=== PATIENT | female | born 1960 | race Caucasian/White ===

== ENCOUNTER → 2017-07-22 | Outpatient (REF) | payer OTHER ==
[2017-07-24 14:14] LABS: HPV HYBRID CAPTURE II Negative (Negative)
== END ==
LOC: M SFHCWAGY 15:42
DX: Z12.4 Encounter for screening for malignant neoplasm of cervix (principal); Z12.31 Encounter for screening mammogram for malignant neoplasm of breast

== ENCOUNTER → 2017-07-25 | Outpatient (REF) | payer OTHER ==
[2017-07-25 19:06] LABS: BASO % 0.5 % (0.0-1.0); EOS # 0.1 10^3/uL (0.0-0.50); EOS % 2.2 % (0.0-3.0); HEMOGLOBIN 11.8 g/dl (12.0-16.0); IMMATURE GRANULOCYTE % 0.3 % (0-0); LYMPH # 1.6 10^3/uL (1.5-4.5); LYMPH % 26.8 % (24.0-44.0); MEAN CORPUSCULAR HEMOGLOBIN 29.6 pg (27.0-33.0); MEAN CORPUSCULAR HGB CONC 31.9 g/dl (32.0-36.5); MEAN CORPUSCULAR VOLUME 92.7 fl (80.0-96.0); MONO # 0.5 10^3/uL (0.0-0.8); MONO % 8.5 % (0.0-5.0); NEUTROPHILS # 3.7 10^3/uL (1.8-7.7); NEUTROPHILS % 61.7 % (36.0-66.0); PLATELET COUNT, AUTOMATED 198 10^3/uL (150-450); RED BLOOD COUNT 3.99 10^6/uL (4.00-5.40); RED CELL DISTRIBUTION WIDTH 13.3 % (11.5-14.5)
[2017-07-25 20:02] LABS: CHOLESTEROL LEVEL 122 MG/DL (<200); CHOLESTEROL RISK RATIO 1.967 (<5); HDL CHOLESTEROL 62 MG/DL (>40); LDL CHOLESTEROL 40.8 MG/DL (<100); NON-HDL-C 60 MG/DL; TRIGLYCERIDES LEVEL 96 MG/DL (<150)
[2017-07-25 20:06] LABS: TOTAL 25(OH) VITAMIN D 43.7 NG/ML (30.0-100.0)
[2017-07-25 20:28] LABS: MALB URINE SIEMENS 12.7 MG/L; MAU/CREAT RATIO 9.4 MCG/MG (0.0-30.0)
== END ==
LOC: M SFHCPLAZ 15:38
DX: R53.83 Other fatigue (principal); E78.2 Mixed hyperlipidemia; E11.40 Type 2 diabetes mellitus with diabetic neuropathy, unspecified; E55.9 Vitamin D deficiency, unspecified

== ENCOUNTER → 2017-10-23 | Outpatient (CLI) | payer BC | LOC: M WHC 14:57 | DX: Z12.31 Encounter for screening mammogram for malignant neoplasm of breast (principal) | CPT/HCPCS: 77067 ==

== ENCOUNTER → 2018-03-03 | Outpatient (REF) | payer OTHER ==
[2018-03-03 13:47] LABS: VITAMIN B12 LEVEL 326 PG/ML (247-911)
[2018-03-03 13:47] LABS: TOTAL 25(OH) VITAMIN D 39.8 NG/ML (30.0-100.0)
[2018-03-03 22:43] LABS: MALB URINE SIEMENS 12.1 MG/L
[2018-03-03 23:40] LABS: ALBUMIN 3.7 GM/DL (3.2-5.2); ALKALINE PHOSPHATASE 57 U/L (45-117); ALT/SGPT 41 U/L (12-78); ANION GAP 8 MEQ/L (8-16); AST/SGOT 24 U/L (7-37); BILIRUBIN,TOTAL 0.7 MG/DL (0.2-1.0); BLOOD UREA NITROGEN 16 MG/DL (7-18); CALCIUM LEVEL 8.7 MG/DL (8.8-10.2); CARBON DIOXIDE LEVEL 26 MEQ/L (21-32); CHLORIDE LEVEL 109 MEQ/L (98-107); CREATININE FOR GFR 0.96 MG/DL (0.55-1.30); GLOMERULAR FILTRATION RATE > 60.0 (>45); GLUCOSE, FASTING 86 MG/DL (70-100); POTASSIUM SERUM 4.2 MEQ/L (3.5-5.1); SODIUM LEVEL 143 MEQ/L (136-145); TOTAL PROTEIN 6.8 GM/DL (6.4-8.2)
[2018-03-03 23:43] LABS: ALBUMIN/GLOBULIN RATIO 1.19 (1.00-1.93)
[2018-03-04 00:34] LABS: MAU/CREAT RATIO 7.3 MCG/MG (0.0-30.0)
== END ==
LOC: M SFHCPLAZ 11:01
DX: E11.40 Type 2 diabetes mellitus with diabetic neuropathy, unspecified (principal)

== ENCOUNTER → 2018-09-30 | Outpatient (REF) | payer OTHER ==
[2018-10-02 14:36] LABS: HPV HYBRID CAPTURE II Negative (Negative)
== END ==
LOC: M SFHCWAGY 09:54
PROVIDERS: ATTEND Nurse Practitioner Family
DX: Z12.4 Encounter for screening for malignant neoplasm of cervix (principal)

== ENCOUNTER → 2018-10-06 | Outpatient (REF) | payer OTHER | LOC: M LAB REF 17:19 | PROVIDERS: ATTEND Physician Assistant | DX: N39.0 Urinary tract infection, site not specified (principal) ==

== ENCOUNTER → 2018-12-05 | Outpatient (REF) | payer OTHER ==
[2018-12-05 17:38] LABS: ALT/SGPT 86 U/L (12-78); BILIRUBIN,TOTAL 0.5 MG/DL (0.2-1.0); BLOOD UREA NITROGEN 18 MG/DL (7-18); CALCIUM LEVEL 9.3 MG/DL (8.8-10.2); CARBON DIOXIDE LEVEL 30 MEQ/L (21-32); CHLORIDE LEVEL 107 MEQ/L (98-107); CREATININE FOR GFR 1.02 MG/DL (0.55-1.30); GLOMERULAR FILTRATION RATE 58.8 (>45); GLUCOSE, FASTING 107 MG/DL (70-100); POTASSIUM SERUM 4.4 MEQ/L (3.5-5.1); SODIUM LEVEL 143 MEQ/L (136-145); TOTAL PROTEIN 7.2 GM/DL (6.4-8.2)
[2018-12-08 08:49] LABS: HEPATITIS B SURFACE ANTIGEN NEGATIVE (NEGATIVE)
[2018-12-08 09:16] LABS: HEPATITIS B CORE ANTIBODY IGM NEGATIVE (NEGATIVE)
[2018-12-08 09:19] LABS: HEPATITIS A ANTIBODY IGM NEGATIVE (NEGATIVE)
== END ==
LOC: M SFHCPLAZ 15:30
PROVIDERS: ATTEND Nurse Practitioner Family
DX: K76.0 Fatty (change of) liver, not elsewhere classified (principal); R94.5 Abnormal results of liver function studies

== ENCOUNTER → 2019-03-17 | Outpatient (REF) | payer OTHER ==
[2019-03-17 13:21] LABS: PERCENT SATURATION 16.5 % (13.2-45.0); THYROID STIMULATING HORMONE 1.01 uIU/ML (0.358-3.740); TOTAL 25(OH) VITAMIN D 30.2 NG/ML (30.0-100.0)
[2019-03-17 13:36] LABS: MALB URINE SIEMENS 20.4 MG/L; MAU/CREAT RATIO 15.9 MCG/MG (0.0-30.0)
== END ==
LOC: M SFHCPLAZ 10:35
PROVIDERS: ATTEND Nurse Practitioner Family
DX: E11.40 Type 2 diabetes mellitus with diabetic neuropathy, unspecified (principal)

== ENCOUNTER → 2019-03-24 | Outpatient (CLI) | payer BC, OTHER ==
--- NOTE | 2019-03-24 12:51 | REP ---
RENAL ULTRASOUND: Real-time sonographic evaluation of the kidneys performed. Right kidney measures 8.6 x 4.5 x 4.8 cm and left kidney 10.4 x 4.3 x 4.6 cm. There is no hydronephrosis bilaterally. Tiny echogenic focus in the upper pole of the right kidney could possibly represent a 4 mm calculus. Otherwise no definite calculi are seen bilaterally. Urinary bladder is empty. IMPRESSION: No hydronephrosis. Possible 4 mm calculus upper pole right kidney. Electronically Signed by Octavio Wisdom MD 03/25/2019 04:08 P
== END ==
LOC: M RAD 08:20
PROVIDERS: ATTEND Nurse Practitioner Family
DX: N18.3 Chronic kidney disease, stage 3 (moderate) (principal)

== ENCOUNTER → 2019-07-08 | Outpatient (CLI) | payer BC, OTHER ==
[2019-07-08 17:23] LABS: BILIRUBIN,TOTAL 0.7 MG/DL (0.2-1.0); CALCIUM LEVEL 9.4 MG/DL (8.8-10.2); CHOLESTEROL RISK RATIO 2.574 (<5); CREATININE FOR GFR 1.08 MG/DL (0.55-1.30); GLOMERULAR FILTRATION RATE 54.9 (>45); TOTAL PROTEIN 7.1 GM/DL (6.4-8.2)
[2019-07-08 17:30] LABS: TOTAL 25(OH) VITAMIN D 29.1 NG/ML (30.0-100.0)
[2019-07-08 17:47] LABS: HEMOGLOBIN A1c 7.2 %
[2019-07-08 17:52] LABS: MALB URINE SIEMENS 28.5 MG/L; MAU/CREAT RATIO 18.5 MCG/MG (0.0-30.0)
== END ==
LOC: M PLALAB 12:40
PROVIDERS: ATTEND Nurse Practitioner Family
DX: E11.9 Type 2 diabetes mellitus without complications (principal); E78.2 Mixed hyperlipidemia; E55.9 Vitamin D deficiency, unspecified

== ENCOUNTER → 2019-10-13 | Outpatient (REF) | payer OTHER ==
[2019-10-13 10:30] LABS: HEMOGLOBIN A1c 7.4 %
[2019-10-13 11:12] LABS: ALBUMIN 3.8 GM/DL (3.2-5.2); BILIRUBIN,TOTAL 0.8 MG/DL (0.2-1.0); CALCIUM LEVEL 9.5 MG/DL (8.8-10.2); CREATININE FOR GFR 1.12 MG/DL (0.55-1.30); GLOMERULAR FILTRATION RATE 52.7 (>45); POTASSIUM SERUM 4.6 MEQ/L (3.5-5.1); TOTAL PROTEIN 7.3 GM/DL (6.4-8.2)
[2019-10-13 11:18] LABS: TOTAL 25(OH) VITAMIN D 40.1 NG/ML (30.0-100.0)
== END ==
LOC: M PLALAB 09:36
PROVIDERS: ATTEND Nurse Practitioner Family
DX: E11.40 Type 2 diabetes mellitus with diabetic neuropathy, unspecified (principal); I10 Essential (primary) hypertension; E55.9 Vitamin D deficiency, unspecified

== ENCOUNTER → 2020-03-22 | Outpatient (CLI) | payer OTHER ==
[2020-03-22 15:06] LABS: MALB URINE SIEMENS 11.9 MG/L; MAU/CREAT RATIO 7.4 MCG/MG (0.0-30.0)
[2020-03-22 16:35] LABS: ALBUMIN 3.7 GM/DL (3.2-5.2); BILIRUBIN,TOTAL 0.7 MG/DL (0.2-1.0); BLOOD UREA NITROGEN 27 MG/DL (7-18); CALCIUM LEVEL 9.6 MG/DL (8.8-10.2); CARBON DIOXIDE LEVEL 24 MEQ/L (21-32); CHLORIDE LEVEL 110 MEQ/L (98-107); CHOLESTEROL LEVEL 142 MG/DL (<200); CHOLESTEROL RISK RATIO 2.535 (<5); CREATININE FOR GFR 0.94 MG/DL (0.55-1.30); GLOMERULAR FILTRATION RATE > 60.0 (>45); GLUCOSE, FASTING 144 MG/DL (70-100); HDL CHOLESTEROL 56 MG/DL (>40); LDL CHOLESTEROL 59 MG/DL (<100); NON-HDL-C 86 MG/DL; POTASSIUM SERUM 4.5 MEQ/L (3.5-5.1); SODIUM LEVEL 141 MEQ/L (136-145); TOTAL PROTEIN 6.9 GM/DL (6.4-8.2); TRIGLYCERIDES LEVEL 134 MG/DL (<150)
[2020-03-22 17:17] LABS: ALT/SGPT 32 U/L (12-78)
[2020-03-23 12:05] LABS: TOTAL 25(OH) VITAMIN D 28.1 NG/ML (30.0-100.0)
== END ==
LOC: M PLALAB 09:51
PROVIDERS: ATTEND Nurse Practitioner Family
DX: E55.9 Vitamin D deficiency, unspecified (principal); I10 Essential (primary) hypertension; E11.40 Type 2 diabetes mellitus with diabetic neuropathy, unspecified

== ENCOUNTER → 2020-07-01 | Outpatient (REF) | payer OTHER | LOC: M SFHCWAGY 13:21 | PROVIDERS: ATTEND Nurse Practitioner Family | DX: Z12.4 Encounter for screening for malignant neoplasm of cervix (principal) | CPT/HCPCS: 87624; G0123 ==

== ENCOUNTER → 2020-07-01 | Outpatient (CLI) | payer BC, OTHER ==
--- NOTE | 2020-07-01 11:59 | REPMRS ---
Patient History The patient states she had a clinical breast exam in 06/2020. No known family history of cancer. Benign ultrasound-guided core biopsy of the left breast, April 27, 2015. No Hormone Replacement Therapy 3D TOMOSYNTHESIS WAS PERFORMED. [facility] lifetime risk for breast cancer is 8.1%. Volpara breast density a. bilateral moles Digital Woman Screen Mammo: July 01, 2020 - Exam #: [id number] Bilateral CC and MLO view(s) were taken. Technologist: Diamond Miramontes, Technologist Prior study comparison: January 12, 2019, bilateral digital woman screen mammo performed at [facility]. October 23, 2017, digital woman screen mammo performed at [facility]. FINDINGS: There are scattered fibroglandular densities. There has been no change in the appearance of the mammogram from the prior studies. There is a mild amount of residual fibroglandular tissue which is fairly symmetric. There is no interval development of dominant mass, architectural distortion, or clustered microcalcification suggestive of malignancy. Assessment: BI-RADS/ACR category 1 mammogram. Negative Mammogram. Recommendation Routine screening mammogram in 1 year (for women over age 40). This mammogram was interpreted with the aid of an FDA-approved computer-aided dectection system. Electronically Signed By: Octavio Wisdom MD 07/01/20 [id number]
== END ==
LOC: M WHC 09:36
PROVIDERS: ATTEND Nurse Practitioner Family
DX: Z12.31 Encounter for screening mammogram for malignant neoplasm of breast (principal)

== ENCOUNTER → 2020-08-29 | Outpatient (REF) | payer OTHER | LOC: M LAB REF 09:33 | PROVIDERS: ATTEND Podiatrist | DX: M79.671 Pain in right foot (principal) ==

== ENCOUNTER → 2020-09-12 | Outpatient (REF) | payer OTHER ==
[2020-09-12 15:59] LABS: HEMOGLOBIN A1c 6.9 %
[2020-09-12 16:05] LABS: ALBUMIN 3.7 GM/DL (3.2-5.2); BILIRUBIN,TOTAL 0.5 MG/DL (0.2-1.0); CALCIUM LEVEL 9.5 MG/DL (8.8-10.2); CREATININE FOR GFR 1.03 MG/DL (0.55-1.30); GLOMERULAR FILTRATION RATE 57.8 (>45); POTASSIUM SERUM 5.1 MEQ/L (3.5-5.1); TOTAL 25(OH) VITAMIN D 22.8 NG/ML (30.0-100.0); TOTAL PROTEIN 6.8 GM/DL (6.4-8.2)
== END ==
LOC: M PLALAB 09:44
PROVIDERS: ATTEND Nurse Practitioner Family
DX: E11.40 Type 2 diabetes mellitus with diabetic neuropathy, unspecified (principal); E55.9 Vitamin D deficiency, unspecified

== ENCOUNTER → 2020-11-05 | Outpatient (CLI) | payer OTHER ==
[~2020-11-05] MED LIST: ATOR1TAB21 PO; DULO1CAP6 PO; GABA-282 PO; LEVE1INJ5 SC; LOSA50TA88 PO; METF10004 PO; POTA10808 PO; VICT18IN2 SC; VITA200048 PO; ZYLO300T6 PO
== END ==
LOC: M LABSMTC 09:18
PROVIDERS: ATTEND Anesthesiology
DX: Z01.818 Encounter for other preprocedural examination (principal); Z11.59 Encounter for screening for other viral diseases

== ENCOUNTER 2020-11-10 11:29 | Day surgery (SDC) | payer BC, OTHER ==
[~2020-11-10] VITALS: Ht 162.6 cm; Wt 86.2 kg
[~2020-11-10 11:29] MED LIST changes: +NS 1,000 ML IV ONE
[2020-11-10] MEDS ORDERED: propofoL 200 MG/20 ML VIAL As Ordered ONE ×2 (12:48→13:16)
[2020-11-10] MEDS ORDERED: LIDOCAINE 2% 100MG/5ML SDV (FOR ANES.) As Ordered ONE (12:48)
--- NOTE | 2020-11-10 13:24 | ROOR ---
Patient Name: Lety Fletcher Procedure Date: 11/10/2020 12:56 PM Date of : 1960 Age: 60 Room: [facility] Gender: Female Note Status: Finalized Procedure: Colonoscopy Indications: High risk colon cancer surveillance: Personal history of colonic polyps Providers: Sanford Gorman Jr, MD Referring MD: Kristal Tristan NP Requesting Provider: Medicines: Propofol per Anesthesia Complications: No immediate complications. Procedure: Pre-Anesthesia Assessment: - Prior to the procedure, a History and Physical was performed, and patient medications and allergies were reviewed. The patient is competent. The risks and benefits of the procedure and the sedation options and risks were discussed with the patient. All questions were answered and informed consent was obtained. Patient identification and proposed procedure were verified by the physician and the nurse in the pre-procedure area and in the procedure room. Mental Status Examination: alert and oriented. Airway Examination: normal oropharyngeal airway and neck mobility. Respiratory Examination: clear to auscultation. CV Examination: normal. ASA Grade Assessment: II - A patient with mild systemic disease. After reviewing the risks and benefits, the patient was deemed in satisfactory condition to undergo the procedure. The anesthesia plan was to use moderate sedation / analgesia (conscious sedation). Immediately prior to administration of medications, the patient was re-assessed for adequacy to receive sedatives. The heart rate, respiratory rate, oxygen saturations, blood pressure, adequacy of pulmonary ventilation, and response to care were monitored throughout the procedure. The physical status of the patient was re-assessed after the procedure. The Colonoscope was introduced through the anus and advanced to the cecum, identified by appendiceal orifice and ileocecal valve. The colonoscopy was performed without difficulty. The patient tolerated the procedure well. The quality of the bowel preparation was fair. Findings: The descending colon, transverse colon, ascending colon, cecum, appendiceal orifice and ileocecal valve appeared normal. A few small and large-mouthed diverticula were found in the sigmoid colon. A small polyp was found in the recto-sigmoid colon. The polyp was removed with a cold snare. Resection and retrieval were complete. For hemostasis, one hemostatic clip was successfully placed. There was no bleeding at the end of the procedure. Impression: - Preparation of the colon was fair. - The descending colon, transverse colon, ascending colon, cecum, appendiceal orifice and ileocecal valve are normal. - Diverticulosis in the sigmoid colon. - One small polyp at the recto-sigmoid colon, removed with a cold snare. Resected and retrieved. Clip was placed. Recommendation: - Discharge patient to home (ambulatory). - Repeat colonoscopy in 5 years for surveillance. Procedure Code(s): --- Professional --- 46409, Colonoscopy, flexible; with removal of tumor(s), polyp(s), or other lesion(s) by snare technique Diagnosis Code(s): --- Professional --- Z86.010, Personal history of colonic polyps K63.5, Polyp of colon K57.30, Diverticulosis of large intestine without perforation or abscess without bleeding CPT copyright 2019 [employer]. All rights reserved. The codes documented in this report are preliminary and upon outbound sales advisor review may be revised to meet current compliance requirements. Sanford Gorman MD Sanford Gorman Jr, MD 11/10/2020 1:24:34 PM Electronically signed by Sanford Gorman Jr, MD Number of Addenda: 0 Note Initiated On: 11/10/2020 12:56 PM Estimated Blood Loss: Estimated blood loss: none.
[2020-11-10 13:44] VITALS: BP 118/59
== END 2020-11-10 13:45 | disposition home or self-care (01) ==
LOC: M OPP 11:29
PROVIDERS: ATTEND Surgery
DX: Z86.010 Personal history of colon polyps (principal); K63.5 Polyp of colon; K57.30 Diverticulosis of large intestine without perforation or abscess without bleeding; I10 Essential (primary) hypertension; E78.5 Hyperlipidemia, unspecified; E11.9 Type 2 diabetes mellitus without complications; K21.9 Gastro-esophageal reflux disease without esophagitis; F41.9 Anxiety disorder, unspecified; Z88.5 Allergy status to narcotic agent; Z88.8 Allergy status to other drugs, medicaments and biological substances; Z79.4 Long term (current) use of insulin; Z79.899 Other long term (current) drug therapy

== ENCOUNTER → 2021-06-06 | Outpatient (CLI) | payer BC, OTHER ==
[~2021-06-06] MED LIST changes: -NS 1,000 ML IV ONE
== END ==
LOC: M WHC 13:18
PROVIDERS: ATTEND Nurse Practitioner Adult Health
DX: Z53.9 Procedure and treatment not carried out, unspecified reason (principal)

== ENCOUNTER → 2022-12-10 | Outpatient (REF) | payer BC, OTHER ==
[~2022-12-10] MED LIST changes: +INSU100I6 SC; -LEVE1INJ5 SC; +LOSA50TA28 PO; -LOSA50TA88 PO
[2022-12-10 18:10] LABS: PERCENT SATURATION 10.6 % (13.2-45.0)
== END ==
LOC: M LAB REF 16:22
PROVIDERS: ATTEND Internal Medicine
DX: D64.9 Anemia, unspecified (principal); R42 Dizziness and giddiness

== ENCOUNTER → 2022-12-26 | Outpatient (CLI) | payer MEDICARE, BC, OTHER | LOC: M RAD 10:20 | PROVIDERS: ATTEND Internal Medicine | DX: R42 Dizziness and giddiness (principal) ==

== ENCOUNTER → 2023-03-20 | Outpatient (REF) | payer MEDICARE, OTHER, BC ==
[2023-03-20 17:27] LABS: PERCENT SATURATION 14.3 % (13.2-45.0)
[2023-03-20 17:30] LABS: FERRITIN 13.5 NG/ML (7.3-270.7)
== END ==
LOC: M LAB REF 16:24
PROVIDERS: ATTEND Internal Medicine
DX: R60.0 Localized edema (principal); D64.9 Anemia, unspecified; I10 Essential (primary) hypertension

== ENCOUNTER → 2023-06-13 | Outpatient (CLI) | payer MEDICARE, BC, OTHER ==
[~2023-06-13] MED LIST changes: +ALLO100T PO; +BAYE81TA10 PO; +BUSP10TA PO; +CALC-212 PO; +FERR240T PO; +GABA600T4 PO; +INSU100I48 SC; +OMEG12003 PO; +SERT50TA29 PO; +VITMTA PO
== END ==
LOC: M WUC 10:05
PROVIDERS: ATTEND Internal Medicine
DX: M25.562 Pain in left knee (principal)

== ENCOUNTER 2023-06-20 08:08 | Day surgery (SDC) | payer MEDICARE, BC, OTHER ==
[~2023-06-20] VITALS: Ht 160 cm; Wt 85.7 kg
[~2023-06-20 08:08] MED LIST changes: +NS 1,000 ML IV ONE
[2023-06-20] MEDS ORDERED: propofoL 200 MG/20 ML VIAL As Ordered ONE (08:45)
[2023-06-20] MEDS ORDERED: LIDOCAINE 2% 100MG/5ML SDV (FOR ANES.) As Ordered ONE (08:45)
[2023-06-20 10:19] VITALS: TEMP 97.9
[2023-06-20 10:45] VITALS: BP 177/75; O2SAT 100
== END 2023-06-20 10:50 | disposition home or self-care (01) ==
LOC: M OPP 08:08
PROVIDERS: ATTEND Surgery
DX: Z12.11 Encounter for screening for malignant neoplasm of colon (principal); Z86.010 Personal history of colon polyps; K57.30 Diverticulosis of large intestine without perforation or abscess without bleeding; D50.9 Iron deficiency anemia, unspecified; K21.00 Gastro-esophageal reflux disease with esophagitis, without bleeding; K44.9 Diaphragmatic hernia without obstruction or gangrene; Z98.84 Bariatric surgery status; K28.9 Gastrojejunal ulcer, unspecified as acute or chronic, without hemorrhage or perforation; Z87.891 Personal history of nicotine dependence; E11.9 Type 2 diabetes mellitus without complications; Z79.02 Long term (current) use of antithrombotics/antiplatelets; Z79.4 Long term (current) use of insulin; Z79.82 Long term (current) use of aspirin; Z79.891 Long term (current) use of opiate analgesic; Z79.899 Other long term (current) drug therapy; Z88.5 Allergy status to narcotic agent; Z88.8 Allergy status to other drugs, medicaments and biological substances
CPT/HCPCS: 43239; 88305; G0105

== ENCOUNTER 2023-12-09 13:07 | Inpatient (IN) | payer MEDICARE, BC ==
[~2023-12-09] VITALS: Ht 161.3 cm; Wt 84.1 kg
[~2023-12-09 13:07] MED LIST changes: -NS 1,000 ML IV ONE
[2023-12-09] MEDS ORDERED: SEMA0.257 PO (13:36)
[2023-12-09] MEDS ORDERED: TOUJ1.2I SC (13:36)
[2023-12-09] MEDS ORDERED: PANT40TA29 PO (13:36)
[2023-12-09 15:13] LABS: HEMATOCRIT 33.4 % (36.0-47.0); HEMOGLOBIN 10.6 g/dl (12.0-15.5); MEAN CORPUSCULAR HEMOGLOBIN 29.6 pg (27.0-33.0); MEAN CORPUSCULAR HGB CONC 31.7 g/dl (32.0-36.5); MEAN CORPUSCULAR VOLUME 93.3 fl (80.0-96.0); PLATELET COUNT, AUTOMATED 157 10^3/uL (150-450); RED BLOOD COUNT 3.58 10^6/uL (4.00-5.40); WHITE BLOOD COUNT 5.6 10^3/uL (4.0-10.0)
[2023-12-09 15:43] LABS: BLOOD UREA NITROGEN 21 MG/DL (9-23); CALCIUM LEVEL 8.7 MG/DL (8.3-10.6); CARBON DIOXIDE LEVEL 26 MMOL/L (20-31); CHLORIDE LEVEL 107 MMOL/L (98-107); CREATININE FOR GFR 0.83 MG/DL (0.55-1.30); GLOMERULAR FILTRATION RATE > 60.0 (>45); GLUCOSE, FASTING 151 MG/DL (74-106); POTASSIUM SERUM 4.5 MMOL/L (3.5-5.1); SODIUM LEVEL 139 MMOL/L (136-145)
[2023-12-09] MEDS: fentaNYL 100 MCG/2 ML INJECTION IV PRN (16:07)
[2023-12-09] MEDS: ONDANSETRON 4MG 2ML VIAL IV ONE (16:07)
[2023-12-09] MEDS: NS 1,000 ML IV ONE (16:38)
[2023-12-09] MEDS ORDERED: GLUCAGON INJ 1MG VIAL SC PRN (17:10)
[2023-12-09] MEDS ORDERED: DEXTROSE 50% 50ML SYRINGE IV PRN (17:10)
[2023-12-09] MEDS ORDERED: MORPHINE 4 MG/ML 1ML VIAL IV PRN (17:10)
[2023-12-09] MEDS ORDERED: ONDANSETRON 4MG 2ML VIAL IV PRN (17:10)
[2023-12-09] MEDS ORDERED: GLUCOSE 4 GM CHEW PO PRN (17:10)
[2023-12-09] MEDS: INSULIN LISPRO (NovoLOG) PER UNIT SC SCH ×2 (17:30→21:00)
[2023-12-09] MEDS: PANTOPRAZOLE 40MG VIAL IV SCH (17:46)
[2023-12-09] MEDS: ENOXAPARIN 40MG/0.4ML SYRINGE (J1650 PER 10MG) SC ONE (17:46)
[2023-12-09 18:46] LABS: INR 1.08; PARTIAL THROMBOPLASTIN TIME 24.1 SECONDS (24.8-34.2); PROTHROMBIN TIME 13.7 SECONDS (12.5-14.5)
[2023-12-09] MEDS: MORPHINE 2 MG/ML 1ML VIAL IV PRN (20:07)
[2023-12-09] MEDS ORDERED: HOME MED LIST COMPLETE! XX SCH (20:40)
[2023-12-09] MEDS: LEVEMIR (INSULIN DETEMIR) 1 UNITS/0.01ML SC SCH (22:13)
[2023-12-10] VITALS (12 sets, daily range): BP systolic 109–150; BP diastolic 54–70; TEMP 96.5–98.4; O2SAT 92–99
[2023-12-10] MEDS: ACETAMINOPHEN TAB 650MG DOSE (2X325MG) PO PRN (02:46)
[2023-12-10 06:05] LABS: HEMATOCRIT 27.2 % (36.0-47.0); HEMOGLOBIN 8.7 g/dl (12.0-15.5); MEAN CORPUSCULAR HEMOGLOBIN 29.8 pg (27.0-33.0); MEAN CORPUSCULAR VOLUME 93.2 fl (80.0-96.0); PLATELET COUNT, AUTOMATED 142 10^3/uL (150-450); RED BLOOD COUNT 2.92 10^6/uL (4.00-5.40); WHITE BLOOD COUNT 4.3 10^3/uL (4.0-10.0)
[2023-12-10 06:27] LABS: ALKALINE PHOSPHATASE 46 U/L (46-116); ALT/SGPT 28 U/L (7.0-40); AST/SGOT 19 U/L (<34); BILIRUBIN,TOTAL 1.2 MG/DL (0.3-1.2); BLOOD UREA NITROGEN 21 MG/DL (9-23); CALCIUM LEVEL 8.2 MG/DL (8.3-10.6); CARBON DIOXIDE LEVEL 27 MMOL/L (20-31); CHLORIDE LEVEL 106 MMOL/L (98-107); CREATININE FOR GFR 0.97 MG/DL (0.55-1.30); GLOMERULAR FILTRATION RATE > 60.0 (>45); GLUCOSE, FASTING 147 MG/DL (74-106); POTASSIUM SERUM 4.8 MMOL/L (3.5-5.1); SODIUM LEVEL 137 MMOL/L (136-145); TOTAL PROTEIN 5.5 G/DL (5.7-8.2)
[2023-12-10] MEDS: POTASSIUM CITRATE 1080MG (10MEQ) TAB PO SCH (08:49)
[2023-12-10] MEDS: allopurinoL 100 MG TAB PO SCH (09:16)
[2023-12-10] MEDS: ATORVASTATIN 20 MG TAB PO SCH (09:16)
[2023-12-10] MEDS: SERTRALINE HCL 50 MG TAB PO SCH (09:17)
[2023-12-10] MEDS: GABAPENTIN 300 MG CAP PO SCH (09:17)
[2023-12-10] MEDS: busPIRone 10 MG TAB PO SCH (09:17)
[2023-12-10] MEDS ORDERED: HYDROmorphone HCL 2MG/ML 1ML VIAL As Ordered ONE (09:46)
[2023-12-10] MEDS ORDERED: MIDAZOLAM INJ 2MG/2ML VIAL As Ordered ONE (09:46)
[2023-12-10] MEDS ORDERED: LIDOCAINE 2% 100MG/5ML SDV (FOR ANES.) As Ordered ONE (09:55)
[2023-12-10] MEDS ORDERED: propofoL 200 MG/20 ML VIAL As Ordered ONE (09:55)
[2023-12-10] MEDS ORDERED: METOCLOPRAMIDE INJ 10MG/2ML VIAL As Ordered ONE (10:30)
[2023-12-10] MEDS: ceFAZolin 2 GM/D5W 50 ML IV BAG As Ordered ONE (11:39)
[2023-12-10] MEDS ORDERED: ACETAMINOPHEN 1000MG 100ML IV BAG As Ordered ONE (12:16)
[2023-12-10] MEDS ORDERED: ONDANSETRON 4MG 2ML VIAL As Ordered ONE (12:16)
[2023-12-10] MEDS ORDERED: oxyCODONE 5MG TAB PO PRN (12:50)
[2023-12-10] MEDS ORDERED: ONDANSETRON 4MG 2ML VIAL IV PRN (12:50)
[2023-12-10] MEDS: LR 1,000 ML IV SCH (12:50)
[2023-12-10] MEDS ORDERED: HYDROMORPHONE HCL 0.5 MG/ 0.5 ML SYRINGE IV PRN (12:50)
[2023-12-10] MEDS ORDERED: fentaNYL 100 MCG/2 ML INJECTION IV PRN (12:50)
[2023-12-10] MEDS ORDERED: diphenhydrAMINE 50MG/ML VIAL IV PRN (12:50)
[2023-12-10] MEDS ORDERED: MEPERIDINE 25 MG/ML 1ML VIAL IV PRN (12:50)
[2023-12-10] MEDS ORDERED: METOCLOPRAMIDE INJ 10MG/2ML VIAL IV PRN (12:50)
[2023-12-10 13:30] LABS: HEMATOCRIT 23.7 % (36.0-47.0); HEMOGLOBIN 7.5 g/dl (12.0-15.5); MEAN CORPUSCULAR HEMOGLOBIN 28.7 pg (27.0-33.0); MEAN CORPUSCULAR HGB CONC 31.6 g/dl (32.0-36.5); MEAN CORPUSCULAR VOLUME 90.8 fl (80.0-96.0); PLATELET COUNT, AUTOMATED 111 10^3/uL (150-450); RED BLOOD COUNT 2.61 10^6/uL (4.00-5.40); WHITE BLOOD COUNT 4.2 10^3/uL (4.0-10.0)
[2023-12-10] MEDS: OZEMPIC 2 MG/3 ML SQ SCH (17:42)
[2023-12-10] MEDS: ceFAZolin SOD 2 GM in IV 1 EA IV SCH (21:10)
[2023-12-11 03:54] VITALS: BP 120/60; TEMP 102.2; O2SAT 94
[2023-12-11 04:00] VITALS: BP 120/60; TEMP 102.2; O2SAT 94
[2023-12-11 05:16] VITALS: TEMP 98.9
[2023-12-11 06:55] VITALS: BP 112/58; TEMP 99.7; O2SAT 96
[2023-12-11 07:44] VITALS: BP 114/57; TEMP 97.8; O2SAT 95
[2023-12-11 08:06] LABS: BASO % 0.5 % (0.0-1.0); HEMATOCRIT 24.9 % (36.0-47.0); HEMOGLOBIN 8.2 g/dl (12.0-15.5); LYMPH # 0.6 10^3/uL (1.5-5.0); LYMPH % 12.4 % (24.0-44.0); MEAN CORPUSCULAR HEMOGLOBIN 29.2 pg (27.0-33.0); MEAN CORPUSCULAR HGB CONC 32.9 g/dl (32.0-36.5); MEAN CORPUSCULAR VOLUME 88.6 fl (80.0-96.0); MONO # 0.5 10^3/uL (0.0-0.8); NEUTROPHILS # 3.3 10^3/uL (1.5-8.5); PLATELET COUNT, AUTOMATED 123 10^3/uL (150-450); RED BLOOD COUNT 2.81 10^6/uL (4.00-5.40); WHITE BLOOD COUNT 4.4 10^3/uL (4.0-10.0)
[2023-12-11 08:23] LABS: CALCIUM LEVEL 8.3 MG/DL (8.3-10.6); CREATININE FOR GFR 1.15 MG/DL (0.55-1.30); GLOMERULAR FILTRATION RATE 50.4 (>45); POTASSIUM SERUM 4.4 MMOL/L (3.5-5.1)
[2023-12-11 11:31] VITALS: BP 122/59; TEMP 98; O2SAT 100
[2023-12-11] MEDS ORDERED: PERCOCET 5MG/325MG TAB PO PRN (13:35)
[2023-12-11] MEDS ORDERED: NORCO, ANEXSIA 5/325MG TABLET (HYDROcodone/ACETAMINOPHEN) PO PRN (13:35)
[2023-12-11] MEDS ORDERED: PERC5TAB12 PO (13:36)
[2023-12-11] MEDS ORDERED: SENN-23 PO (13:36)
[2023-12-11] MEDS ORDERED: MIRALAX *UNIT DOSE* 17GM PACKET PO PRN (13:50)
[2023-12-11] MEDS ORDERED: SENOKOT S TAB PO SCH (21:00)
[2023-12-11] MEDS ORDERED: PANTOPRAZOLE 40MG TAB (PROTONIX) PO SCH (21:00)
== END 2023-12-11 14:49 | DRG 493 ==
LOC: M ED 13:07 → EDBD 13:07 → M ED INP 17:45 → M PCU 12-10 02:38
PROVIDERS: ADMIT Internal Medicine; ATTEND Internal Medicine
PROC: 30233N1 Transfusion of Nonautologous Red Blood Cells into Peripheral Vein, Percutaneous Approach (ICD-10-PCS; 2023-12-10)
PROC: 0QSH34Z Reposition Left Tibia with Internal Fixation Device, Percutaneous Approach (ICD-10-PCS; principal; 2023-12-10 11:00)
DX: S82.455A Nondisplaced comminuted fracture of shaft of left fibula, initial encounter for closed fracture (principal); D62 Acute posthemorrhagic anemia; S82.145A Nondisplaced bicondylar fracture of left tibia, initial encounter for closed fracture; W13.3XXA Fall through floor, initial encounter; Y92.9 Unspecified place or not applicable; E11.42 Type 2 diabetes mellitus with diabetic polyneuropathy; D50.9 Iron deficiency anemia, unspecified; I10 Essential (primary) hypertension; D69.6 Thrombocytopenia, unspecified; K21.9 Gastro-esophageal reflux disease without esophagitis; E66.9 Obesity, unspecified; K76.0 Fatty (change of) liver, not elsewhere classified; Z98.84 Bariatric surgery status; Z79.82 Long term (current) use of aspirin; Z79.84 Long term (current) use of oral hypoglycemic drugs; Z79.899 Other long term (current) drug therapy; Z88.5 Allergy status to narcotic agent; Z86.718 Personal history of other venous thrombosis and embolism; Z88.8 Allergy status to other drugs, medicaments and biological substances

== ENCOUNTER 2023-12-11 13:55 | Inpatient (IN) | payer MEDICARE, BC ==
[~2023-12-11] VITALS: Ht 160 cm; Wt 84.0 kg
[~2023-12-11 13:55] MED LIST changes: +PANT40TA29 PO; +PERC5TAB12 PO; +SEMA0.257 PO; +SENN-23 PO; +TOUJ1.2I SC
[2023-12-11] MEDS ORDERED: ONDANSETRON 4MG TAB PO PRN (14:30)
[2023-12-11] MEDS ORDERED: DEXTROSE 50% 50ML SYRINGE IV PRN (14:35)
[2023-12-11] MEDS ORDERED: GLUCAGON INJ 1MG VIAL SC PRN (14:35)
[2023-12-11] MEDS ORDERED: oxyCODONE 5MG TAB PO PRN (14:35)
[2023-12-11] MEDS ORDERED: GLUCOSE 4 GM CHEW PO PRN (14:35)
[2023-12-11 14:53] VITALS: BP 142/63; TEMP 97.7; O2SAT 99
[2023-12-11] MEDS: GABAPENTIN 300 MG CAP PO SCH (16:54)
[2023-12-11] MEDS: INSULIN LISPRO (NovoLOG) PER UNIT SC SCH ×2 (16:55→20:43)
[2023-12-11] MEDS: ACETAMINOPHEN 500 MG TAB PO SCH (16:55)
[2023-12-11 19:51] VITALS: BP 140/64; TEMP 97.6; O2SAT 94
[2023-12-11 20:12] VITALS: BP 144/51; TEMP 98; O2SAT 94
[2023-12-11] MEDS: SENOKOT S TAB PO SCH (20:51)
[2023-12-11] MEDS: busPIRone 10 MG TAB PO SCH (20:51)
[2023-12-11] MEDS: LEVEMIR (INSULIN DETEMIR) 1 UNITS/0.01ML SC SCH (20:52)
[2023-12-12 04:00] VITALS: BP 154/55; TEMP 96.8; O2SAT 95
[2023-12-12 06:03] VITALS: BP 154/55; TEMP 96.8; O2SAT 95
[2023-12-12 06:03] LABS: BASO % 0.7 % (0.0-1.0); EOS # 0.1 10^3/uL (0.0-0.5); EOS % 3.6 % (0.0-3.0); HEMATOCRIT 22.3 % (36.0-47.0); HEMOGLOBIN 7.2 g/dl (12.0-15.5); LYMPH # 0.7 10^3/uL (1.5-5.0); LYMPH % 24.9 % (24.0-44.0); MEAN CORPUSCULAR HEMOGLOBIN 28.7 pg (27.0-33.0); MEAN CORPUSCULAR HGB CONC 32.3 g/dl (32.0-36.5); MEAN CORPUSCULAR VOLUME 88.8 fl (80.0-96.0); MONO # 0.4 10^3/uL (0.0-0.8); MONO % 13.2 % (2.0-8.0); NEUTROPHILS # 1.6 10^3/uL (1.5-8.5); NEUTROPHILS % 56.9 % (36.0-66.0); PLATELET COUNT, AUTOMATED 116 10^3/uL (150-450); RED BLOOD COUNT 2.51 10^6/uL (4.00-5.40); WHITE BLOOD COUNT 2.8 10^3/uL (4.0-10.0)
[2023-12-12 06:20] LABS: PERCENT SATURATION 8.4 % (13.2-45.0)
[2023-12-12 06:21] LABS: FERRITIN 160.1 NG/ML (7.3-270.7); FOLATE 10.6 NG/ML (>5.4); TOTAL 25(OH) VITAMIN D 17.9 NG/ML (20.0-100.0)
[2023-12-12 06:24] LABS: ALBUMIN 2.5 G/DL (3.2-5.2); BILIRUBIN,TOTAL 0.5 MG/DL (0.3-1.2); CALCIUM LEVEL 8.6 MG/DL (8.3-10.6); CREATININE FOR GFR 1.05 MG/DL (0.55-1.30); TOTAL PROTEIN 5.1 G/DL (5.7-8.2)
[2023-12-12 06:25] VITALS: BP 154/55; TEMP 96.8; O2SAT 95
[2023-12-12 06:44] LABS: HEMOGLOBIN A1c 6.2 % (4.0-6.0)
[2023-12-12] MEDS: ASPIRIN 81MG ENTERIC TABLET PO SCH (08:28)
[2023-12-12] MEDS: ENOXAPARIN 40MG/0.4ML SYRINGE (J1650 PER 10MG) SC SCH (08:28)
[2023-12-12] MEDS: POTASSIUM CITRATE 1080MG (10MEQ) TAB PO SCH (08:28)
[2023-12-12] MEDS: allopurinoL 100 MG TAB PO SCH (08:29)
[2023-12-12] MEDS: ATORVASTATIN 20 MG TAB PO SCH (08:29)
[2023-12-12] MEDS: SERTRALINE HCL 50 MG TAB PO SCH (08:29)
[2023-12-12] MEDS: PANTOPRAZOLE 40MG TAB (PROTONIX) PO SCH (08:29)
[2023-12-12] MEDS: NYSTATIN CREAM 15GM TOP SCH (09:00)
[2023-12-12 12:00] VITALS: BP 122/59; TEMP 97.3; O2SAT 99
[2023-12-12] MEDS: VITAMIN D 1,000 INTERNATIONAL UNITS TABLET PO SCH (12:10)
[2023-12-12] MEDS: CYANOCOBALAMIN 500 MCG TAB PO SCH (12:10)
[2023-12-12] MEDS: FERROUS SULFATE 325MG TAB PO SCH (12:10)
[2023-12-12 17:32] VITALS: BP 122/60; TEMP 97.4; O2SAT 97
[2023-12-12 20:01] VITALS: BP 147/67; TEMP 96.7; O2SAT 100
[2023-12-13] VITALS (7 sets, daily range): BP systolic 135–170; BP diastolic 61–72; TEMP 97–98.2; O2SAT 96–100
[2023-12-13 06:22] LABS: HEMATOCRIT 21.7 % (36.0-47.0); MEAN CORPUSCULAR HEMOGLOBIN 28.6 pg (27.0-33.0); MEAN CORPUSCULAR HGB CONC 31.8 g/dl (32.0-36.5); PLATELET COUNT, AUTOMATED 135 10^3/uL (150-450); RED BLOOD COUNT 2.41 10^6/uL (4.00-5.40)
[2023-12-13 06:30] LABS: HEMOGLOBIN 6.9 g/dl (12.0-15.5)
[2023-12-13 06:49] LABS: BLOOD UREA NITROGEN 25 MG/DL (9-23); CARBON DIOXIDE LEVEL 29 MMOL/L (20-31); CHLORIDE LEVEL 110 MMOL/L (98-107); CREATININE FOR GFR 0.95 MG/DL (0.55-1.30); GLOMERULAR FILTRATION RATE > 60.0 (>45); GLUCOSE, FASTING 120 MG/DL (74-106); POTASSIUM SERUM 3.8 MMOL/L (3.5-5.1); SODIUM LEVEL 144 MMOL/L (136-145)
[2023-12-14 04:00] VITALS: BP 151/66; TEMP 97; O2SAT 98
[2023-12-14 05:59] LABS: HEMATOCRIT 24.4 % (36.0-47.0); MEAN CORPUSCULAR HEMOGLOBIN 29.1 pg (27.0-33.0); MEAN CORPUSCULAR HGB CONC 32.8 g/dl (32.0-36.5); MEAN CORPUSCULAR VOLUME 88.7 fl (80.0-96.0); PLATELET COUNT, AUTOMATED 153 10^3/uL (150-450); RED BLOOD COUNT 2.75 10^6/uL (4.00-5.40); WHITE BLOOD COUNT 3.2 10^3/uL (4.0-10.0)
[2023-12-14 10:32] VITALS: BP 147/65; O2SAT 100
[2023-12-14 12:00] VITALS: BP 135/63; TEMP 97.4; O2SAT 100
[2023-12-14 20:00] VITALS: BP 153/67; TEMP 98.1; O2SAT 98
[2023-12-15 04:00] VITALS: BP 160/80; TEMP 97.1; O2SAT 99
[2023-12-15 12:00] VITALS: BP 126/76; TEMP 97.3; O2SAT 97
[2023-12-15] MEDS: NYSTATIN 100,000 UNITS/GM TOPICAL PWD 15GM TOP SCH (12:18)
[2023-12-15 19:46] VITALS: BP 153/67; TEMP 97.9; O2SAT 96
[2023-12-16 04:12] VITALS: BP 166/74; TEMP 96.9; O2SAT 99
[2023-12-16 12:00] VITALS: BP 152/66; TEMP 97.4; O2SAT 99
[2023-12-16] MEDS: metFORMIN (GLUCOPHAGE) 500MG TAB PO SCH (17:04)
[2023-12-16 20:05] VITALS: BP 169/72; TEMP 97.4; O2SAT 98
[2023-12-17 04:39] VITALS: BP 152/74; TEMP 97.9; O2SAT 96
[2023-12-17 06:35] LABS: HEMATOCRIT 25.3 % (36.0-47.0); HEMOGLOBIN 8.1 g/dl (12.0-15.5); MEAN CORPUSCULAR HEMOGLOBIN 29.5 pg (27.0-33.0); PLATELET COUNT, AUTOMATED 197 10^3/uL (150-450); RED BLOOD COUNT 2.75 10^6/uL (4.00-5.40); WHITE BLOOD COUNT 4.2 10^3/uL (4.0-10.0)
[2023-12-17 06:58] LABS: BLOOD UREA NITROGEN 19 MG/DL (9-23); CALCIUM LEVEL 8.2 MG/DL (8.3-10.6); CARBON DIOXIDE LEVEL 25 MMOL/L (20-31); CHLORIDE LEVEL 110 MMOL/L (98-107); CREATININE FOR GFR 0.81 MG/DL (0.55-1.30); GLOMERULAR FILTRATION RATE > 60.0 (>45); GLUCOSE, FASTING 138 MG/DL (74-106); MAGNESIUM LEVEL 1.7 MG/DL (1.8-2.4); POTASSIUM SERUM 3.9 MMOL/L (3.5-5.1); SODIUM LEVEL 141 MMOL/L (136-145)
[2023-12-17] MEDS: LOSARTAN 25 MG TAB PO SCH (08:24)
[2023-12-17] MEDS: MAGNESIUM OXIDE 400MG TAB (MAG-OX) PO SCH (10:04)
[2023-12-17 12:00] VITALS: BP 105/54; TEMP 98.4; O2SAT 98
[2023-12-17] MEDS: methocarbamoL 500 MG TAB PO PRN (14:26)
[2023-12-17 20:00] VITALS: BP 149/68; TEMP 98.1; O2SAT 96
[2023-12-18 04:00] VITALS: BP 164/72; TEMP 97.8; O2SAT 97
[2023-12-18 12:00] VITALS: BP 121/56; TEMP 97.5; O2SAT 98
[2023-12-18] MEDS ORDERED: METH-1164 PO (14:23)
[2023-12-18] MEDS ORDERED: VITA500T40 PO (14:23)
[2023-12-18] MEDS ORDERED: VITAD1000T PO (14:23)
[2023-12-18] MEDS ORDERED: BAYE81TA10 PO (14:23)
[2023-12-18] MEDS ORDERED: CHOL125C6 PO (14:25)
[2023-12-18] MEDS: PREVNAR-20 VACCINE 0.5ML SYRINGE IM.IMMUN ONE (15:51)
[2023-12-18] MEDS: metFORMIN (GLUCOPHAGE) 500MG TAB PO SCH (17:34)
[2023-12-18 20:00] VITALS: BP 148/63; TEMP 97.2; O2SAT 98
[2023-12-19 04:00] VITALS: BP 167/67; TEMP 97.4; O2SAT 97
[2023-12-19 08:18] VITALS: BP 138/65
[2023-12-19 08:35] VITALS: BP 138/65; TEMP 97.4; O2SAT 97
[2023-12-19 12:00] VITALS: BP 129/60; TEMP 98; O2SAT 99
== END 2023-12-19 14:00 | disposition home health service (06) | DRG 560 ==
LOC: M PM&R 14:53
PROVIDERS: ADMIT Student in an Organized Health Care Education/Training Program; ATTEND Student in an Organized Health Care Education/Training Program
DX: S82.455D Nondisplaced comminuted fracture of shaft of left fibula, subsequent encounter for closed fracture with routine healing (principal); D62 Acute posthemorrhagic anemia; D61.818 Other pancytopenia; D68.51 Activated protein C resistance; S82.145D Nondisplaced bicondylar fracture of left tibia, subsequent encounter for closed fracture with routine healing; E11.42 Type 2 diabetes mellitus with diabetic polyneuropathy; I10 Essential (primary) hypertension; D50.9 Iron deficiency anemia, unspecified; K21.9 Gastro-esophageal reflux disease without esophagitis; D72.819 Decreased white blood cell count, unspecified; E66.9 Obesity, unspecified; D69.6 Thrombocytopenia, unspecified; L25.8 Unspecified contact dermatitis due to other agents; E55.9 Vitamin D deficiency, unspecified; E53.8 Deficiency of other specified B group vitamins; E88.810 Metabolic syndrome; G89.18 Other acute postprocedural pain; K76.0 Fatty (change of) liver, not elsewhere classified; F43.20 Adjustment disorder, unspecified; Z88.8 Allergy status to other drugs, medicaments and biological substances; Z74.09 Other reduced mobility; Z74.1 Need for assistance with personal care; Z86.718 Personal history of other venous thrombosis and embolism; Z98.84 Bariatric surgery status; Z87.442 Personal history of urinary calculi; Z88.5 Allergy status to narcotic agent; Z79.4 Long term (current) use of insulin; Z68.32 Body mass index [BMI] 32.0-32.9, adult

== ENCOUNTER → 2023-12-25 | Outpatient (CLI) | payer MEDICARE, BC ==
[~2023-12-25] MED LIST changes: +CHOL125C6 PO; +METH-1164 PO; +VITA500T40 PO; +VITAD1000T PO
== END ==
LOC: M SOG 07:56
PROVIDERS: ATTEND Physician Assistant
DX: S82.202A Unspecified fracture of shaft of left tibia, initial encounter for closed fracture (principal); S82.122A Displaced fracture of lateral condyle of left tibia, initial encounter for closed fracture; Z47.89 Encounter for other orthopedic aftercare; Y93.9 Activity, unspecified; Y92.9 Unspecified place or not applicable

== ENCOUNTER → 2024-01-02 | Outpatient (REF) | payer MEDICARE, OTHER ==
[2024-01-02 14:17] LABS: BASO # 0.1 10^3/uL (0.0-0.2); BASO % 1.2 % (0.0-1.0); EOS # 0.1 10^3/uL (0.0-0.5); EOS % 3.3 % (0.0-3.0); HEMATOCRIT 33.2 % (36.0-47.0); HEMOGLOBIN 10.1 g/dl (12.0-15.5); LYMPH # 0.8 10^3/uL (1.5-5.0); LYMPH % 18.9 % (24.0-44.0); MEAN CORPUSCULAR HEMOGLOBIN 29.5 pg (27.0-33.0); MEAN CORPUSCULAR HGB CONC 30.4 g/dl (32.0-36.5); MEAN CORPUSCULAR VOLUME 97.1 fl (80.0-96.0); MONO # 0.3 10^3/uL (0.0-0.8); MONO % 7.1 % (2.0-8.0); NEUTROPHILS # 2.9 10^3/uL (1.5-8.5); NEUTROPHILS % 68.8 % (36.0-66.0); PLATELET COUNT, AUTOMATED 259 10^3/uL (150-450); RED BLOOD COUNT 3.42 10^6/uL (4.00-5.40); WHITE BLOOD COUNT 4.2 10^3/uL (4.0-10.0)
[2024-01-02 14:50] LABS: BLOOD UREA NITROGEN 22 MG/DL (9-23); CALCIUM LEVEL 8.9 MG/DL (8.3-10.6); CARBON DIOXIDE LEVEL 20 MMOL/L (20-31); CHLORIDE LEVEL 107 MMOL/L (98-107); CREATININE FOR GFR 0.92 MG/DL (0.55-1.30); GLOMERULAR FILTRATION RATE > 60.0 (>45); GLUCOSE, FASTING 106 MG/DL (74-106); POTASSIUM SERUM 4.3 MMOL/L (3.5-5.1); SODIUM LEVEL 139 MMOL/L (136-145)
== END ==
LOC: M SHH 12:51
PROVIDERS: ATTEND Internal Medicine
DX: E11.42 Type 2 diabetes mellitus with diabetic polyneuropathy (principal); D62 Acute posthemorrhagic anemia

== ENCOUNTER → 2024-01-23 | Outpatient (CLI) | payer MEDICARE, OTHER ==
[~2024-01-23] MED LIST changes: +GABA-1490 PO; -GABA600T4 PO
== END ==
LOC: M WHC 12:02
PROVIDERS: ATTEND Physician Assistant
DX: Z47.89 Encounter for other orthopedic aftercare (principal); R60.0 Localized edema; Z86.718 Personal history of other venous thrombosis and embolism

== ENCOUNTER → 2024-01-23 | Outpatient (CLI) | payer MEDICARE, OTHER ==
[~2024-01-23] MED LIST changes: -GABA-1490 PO; +GABA600T4 PO
== END ==
LOC: M SOG 07:52
PROVIDERS: ATTEND Physician Assistant
DX: Z47.89 Encounter for other orthopedic aftercare (principal); Z53.9 Procedure and treatment not carried out, unspecified reason

== ENCOUNTER → 2024-01-23 | Outpatient (CLI) | payer MEDICARE, OTHER | LOC: M PLAIMG 10:04 | PROVIDERS: ATTEND Physician Assistant | DX: S82.202A Unspecified fracture of shaft of left tibia, initial encounter for closed fracture (principal); S82.122A Displaced fracture of lateral condyle of left tibia, initial encounter for closed fracture; Z47.89 Encounter for other orthopedic aftercare; Y93.9 Activity, unspecified; Y92.9 Unspecified place or not applicable ==

== ENCOUNTER → 2024-02-25 | Outpatient (REF) | payer MEDICARE, OTHER ==
[~2024-02-25] MED LIST changes: +GABA-1490 PO; -GABA600T4 PO
[2024-02-25 19:12] LABS: PERCENT SATURATION 15.2 % (13.2-45.0)
[2024-02-25 19:13] LABS: FERRITIN 37.2 NG/ML (7.3-270.7)
== END ==
LOC: M LAB REF 17:00
PROVIDERS: ATTEND Internal Medicine
DX: D64.9 Anemia, unspecified (principal)

== ENCOUNTER → 2024-03-05 | Outpatient (CLI) | payer MEDICARE, OTHER | LOC: M SOG 07:24 | PROVIDERS: ATTEND Physician Assistant | DX: S82.202D Unspecified fracture of shaft of left tibia, subsequent encounter for closed fracture with routine healing (principal); S82.122D Displaced fracture of lateral condyle of left tibia, subsequent encounter for closed fracture with routine healing; Z47.89 Encounter for other orthopedic aftercare ==

== ENCOUNTER → 2024-03-31 | Outpatient (CLI) | payer MEDICARE, OTHER ==
[~2024-03-31] MED LIST changes: +GABA-1172 PO; -GABA-282 PO
== END ==
LOC: M SOG 11:26
PROVIDERS: ATTEND Physician Assistant
DX: M25.511 Pain in right shoulder (principal)

== ENCOUNTER → 2024-05-25 | Outpatient (CLI) | payer MEDICARE, BC ==
[~2024-05-25] MED LIST changes: +ISOVUE-300 61% 100ML VIAL As Ordered ONE; +LIDOCAINE 1% MDV 20ML VIAL As Ordered ONE; +TRIAMCINOLONE ACETONIDE SUSP 40MG/ML 1ML VIAL As Ordered ONE
== END ==
LOC: M RAD 14:13
PROVIDERS: ATTEND Physician Assistant
DX: M19.011 Primary osteoarthritis, right shoulder (principal)
CPT/HCPCS: 20610; 77002; J0665; J3301; Q9967

== ENCOUNTER → 2024-07-07 | Outpatient (CLI) | payer MEDICARE, BC ==
[~2024-07-07] MED LIST changes: -ISOVUE-300 61% 100ML VIAL As Ordered ONE; -LIDOCAINE 1% MDV 20ML VIAL As Ordered ONE; -POTA10808 PO; +POTA10809 PO; -TRIAMCINOLONE ACETONIDE SUSP 40MG/ML 1ML VIAL As Ordered ONE
== END ==
LOC: M PLAIMG 08:56
PROVIDERS: ATTEND Physician Assistant
DX: M75.41 Impingement syndrome of right shoulder (principal); S46.012A Strain of muscle(s) and tendon(s) of the rotator cuff of left shoulder, initial encounter; M25.411 Effusion, right shoulder; M19.011 Primary osteoarthritis, right shoulder

== ENCOUNTER → 2024-09-10 | Outpatient (CLI) | payer MEDICARE, BC | LOC: M SOG 07:48 | PROVIDERS: ATTEND Physician Assistant | DX: S82.202A Unspecified fracture of shaft of left tibia, initial encounter for closed fracture (principal); S82.122A Displaced fracture of lateral condyle of left tibia, initial encounter for closed fracture; Z47.89 Encounter for other orthopedic aftercare; W18.30XA Fall on same level, unspecified, initial encounter; Y92.009 Unspecified place in unspecified non-institutional (private) residence as the place of occurrence of the external cause ==

== ENCOUNTER → 2025-02-19 | Outpatient (CLI) | payer MEDICARE, OTHER | LOC: M SOG 10:54 | PROVIDERS: ATTEND Orthopaedic Surgery | DX: M25.572 Pain in left ankle and joints of left foot (principal) ==

== ENCOUNTER → 2025-02-19 | Outpatient (CLI) | payer MEDICARE, OTHER | LOC: M SOG 07:26 | PROVIDERS: ATTEND Orthopaedic Surgery | DX: M25.572 Pain in left ankle and joints of left foot (principal); Z98.890 Other specified postprocedural states ==